=== PATIENT | male | born 1985 | race Caucasian/White ===

== ENCOUNTER 2024-09-05 10:31 | Emergency (ER) | payer BC, SELFPAY ==
[2024-09-05 10:33] VITALS: BP 139/86; PULSE 84; RESP 16; TEMP 37; O2SAT 99; BMI 20.5
--- NOTE | 2024-09-05 11:10 | EDS_ITS ---
HPI <GAUTAM Viramontes - Last Filed: 09/05/24 11:55> History of Present Illness Chief Complaint: Other, Pain/Inj Narrative Narrative: 39-year-old male with no past medical history states 3 days ago he noticed a bump next to his umbilicus. He thinks it might be a hernia. Since then he feels like there is a dull ache but no overt pain. He states the only new activity recently was jumping on a trampoline. He has no nausea or vomiting and reports regular bowel movements and urination. No history of abdominal surgeries. PFSH <GAUTAM Viramontes - Last Filed: 09/05/24 11:55> PFSH Medical History no medical history Home Medications ?Medication ?Instructions ?Recorded ?Last Taken ?Type NK 09/05/24 Unknown History Allergy/AdvReac Type Severity Reaction Status Date / Time No Known Allergies Allergy Verified 09/05/24 10:32 Social History Smoking Status: Never smoker ROS <GAUTAM Viramontes - Last Filed: 09/05/24 11:55> ROS ED ROS Narrative Constitutional: Negative for fever, chills, malaise. GI: Negative for abdominal pain, nausea, vomiting, diarrhea, constipation, melena, hematochezia. : Negative for dysuria. EXAM <GAUTAM Viramontes - Last Filed: 09/05/24 11:55> Physical Exam Narrative Exam Narrative: CONST: Patient sitting in no acute distress. EYES: Normal inspection. NECK: Normal inspection. RESP: No respiratory distress, CTAB. CVS: Regular rate and rhythm, no murmur, no gallop. ABD: Soft and nontender, no guarding or rebound, nondistended. Small palpable pea-sized lump right of the umbilicus. Does not enlarged with Valsalva. Nontender, no overlying skin changes. SKIN: Color normal, no rash, warm, dry, intact. EXTREMITIES: Normal appearance, no pedal edema. NEURO: Alert and answering questions appropriately. PSYCH: Normal affect. Const Vital Signs: 09/05/24 10:33 09/05/24 10:54 09/05/24 11:49 Temperature 98.6 F 97.9 F Temperature Source Oral Pulse Rate 84 70 Respiratory Rate 16 18 Respiratory Effort Normal Non-Labored Respiratory Pattern Normal Blood Pressure 139/86 H 94/81 H Blood Pressure Mean 103 85 Pulse Ox 99 100 Oxygen Delivery Method Room Air <Dr. Ganesh Patel DO - Last Filed: 09/05/24 11:53> Physical Exam Const Vital Signs: 09/05/24 10:33 09/05/24 10:54 09/05/24 11:49 Temperature 98.6 F 97.9 F Temperature Source Oral Pulse Rate 84 70 Respiratory Rate 16 18 Respiratory Effort Normal Non-Labored Respiratory Pattern Normal Blood Pressure 139/86 H 94/81 H Blood Pressure Mean 103 85 Pulse Ox 99 100 Oxygen Delivery Method Room Air [facility] <GAUTAM Viramontes - Last Filed: 09/05/24 11:55> [facility] Narrative Medical decision making narrative: Differential: Hernia, enlarged lymph node 39-year-old male noticed a small nodule right of his umbilicus 3 days ago. He appears well and nontoxic. Vital stable. On abdominal exam he can feel a pea- sized nodule to the right of his umbilicus. Does not enlarge with straining. There is no overlying skin changes. Very minimally tender and the rest of his abdomen is soft, benign. He has had normal p.o. intake, no vomiting, normal bowel movements. I do not think he requires emergent labs or imaging but referred him to general surgery for follow-up. Return precautions discussed. He was discharged in stable condition. <Dr. Ganesh Patel, - Last Filed: 09/05/24 11:53> [facility] Treatment and Re-Evaluation :: I have personally performed a face to face assessment of the patient and have reviewed the VINI Note. I performed a substantive portion of the visit including all aspects of the following. My yoon findings include: History: Patient presents with abdominal pain that has been getting worse over the past 3 days. Patient states he noticed a bump just to the right of his umbilicus. Patient describes it as dull. Patient states it is worse with palpating the area. Patient states that is also worse when he bends forward. Patient states it is better with rest. Patient denies any nausea or vomiting. Patient denies any fevers or chills. Patient denies any diarrhea or constipation. Patient denies any urinary complaints. Exam: Vital signs are stable. Patient is afebrile. Patient is in no acute distress. Oral mucosa is pink and moist. Neck is supple. Trachea is midline. There is no JVD. Heart was regular rate and rhythm. Lungs are clear and equal bilaterally. Abdomen is soft. There is a small tender nodule over the right side of the umbilicus. I do not feel a fascial defect. There is no rebound or guarding noted. There is no other tenderness noted. Cranial nerves II through XII are intact. There are no focal motor or sensory deficits noted. Medical Decision Making: Patient was advised that this could be a small hernia. Patient is not having any nausea or vomiting. I do not feel that CT scan is necessary at this time. Patient was given referral for general surgery. Patient was instructed to use ice to the area. Patient was instructed to follow-up in 5 to 7 days. Patient understood and was agreeable with the plan. All questions were answered. Discharge Plan Triage Chief Complaint: Other, Pain/Inj ED Midlevel Provider: Amanda Sellers ED Provider: Ganesh Patel Dx/Rx/DC Orders Clinical Impression: Hernia, umbilical Instructions: ED Hernia (Adult) Prescriptions: No Action NK Primary Care Provider: Care Physician,No Primary Referrals: Derrick Chappell MD [Med Staff - Active Staff] - NOT,DEFINED [Non-Staff] - Activity Restrictions/Additional Instructions: Call the general surgery office to get an appointment for evaluation of a hernia. If it anytime the area becomes much more painful, you develop vomiting, or fever, or are unable to have bowel movements please come back to the emergency room. Print Language: Thai Disposition Disposition: Home, Self Care Discharge Date/Time: 09/05/24 11:53
[2024-09-05 11:49] VITALS: BP 94/81; PULSE 70; RESP 18; TEMP 36.6; O2SAT 100
== END 2024-09-05 11:53 | disposition home or self-care (01) ==
PROVIDERS: Emergency Provider Emergency Medicine; Visit Provider Emergency Medicine
DX: K42.9 Umbilical hernia without obstruction or gangrene (principal)
CPT/HCPCS: 99282